=== PATIENT | male | born 1965 | race Caucasian/White ===

== ENCOUNTER 2017-03-07 08:41 | Emergency (ER) | payer OTHER ==
--- NOTE | 2017-03-07 15:34 | SPC ---
FLUOROSCOPICALLY GUIDED LEFT UPPER EXTREMITY PICC LINE INSERTION: 03/07/17 HISTORY: Patient with osteomyelitis. RADIATION DOSIMETRY: 1.6 minutes of fluoroscopy and DAP 6.2 Gy*cm2. Informed consent was obtained from the patient. The left basilic vein was localized using fluoroscop y and some intravenous contrast. The overlying skin was prepped and draped in the usual sterile blas er. A 1% lidocaine solution was to anesthetize the overlying soft tissues. A small dermatotomy was m sony. The left basilic vein was accessed. An 0.018 wire was introduced. A 5 Vincentian PICC line was cut to 48 cm and placed over the wire through a peel away sheath distal tip in the SVC/right atrial junc tion. IMPRESSION: Successful placement of a left upper extremity PICC line. POS: [facility]
== END 2017-03-07 14:54 | disposition home or self-care (01) ==
LOC: ERS 08:41
DX: Z45.2 Encounter for adjustment and management of vascular access device (principal); E11.9 Type 2 diabetes mellitus without complications; I10 Essential (primary) hypertension; I25.2 Old myocardial infarction; E78.5 Hyperlipidemia, unspecified; F17.210 Nicotine dependence, cigarettes, uncomplicated; Z79.82 Long term (current) use of aspirin; Z79.4 Long term (current) use of insulin; Z79.01 Long term (current) use of anticoagulants; Z79.899 Other long term (current) drug therapy
CPT/HCPCS: 36569; 99283; C1751

== ENCOUNTER 2017-11-13 22:29 | Inpatient (IN) | payer OTHER ==
--- NOTE | 2017-11-13 23:02 | RAD ---
PORTABLE CHEST: 11/13/17 HISTORY: Chest pain. Lung kenny are clear. No evidence of infiltrate. Heart and mediastinum unremarkable. IMPRESSION: No acute process. POS: [facility]
[2017-11-13 23:12] LABS: Base Excess-Venous 3.1 mmol/L (0 (+/- 2.5)); Bicarbonate (HCO3v) 27.6 mmol/L (1.0-85.0); Hemoglobin - Calc 15.8 g/dL (12.0-18.0); O2 Tension (PvO2) 57.7 mmHg (35.0-45.0); Potassium 4.6 mmol/L (3.4-4.7); T. Carbon Dioxide 28.9 mmol/L (1.0-85.0); pH (Venous) 7.436 (7.35-7.45); vO2 Saturation-calc 90.4 % (94-98)
--- NOTE | 2017-11-13 23:12 | RAD ---
RIGHT FOOT: 11/13/17 Three views. HISTORY: Foot pain. There are moderate degenerative changes of the first MTP joint. Joint narrowing and hypertrophic spur ring is present at this joint. Mild to moderate degenerative change at the IP joint of the great toe. The other MTP joints appear unremarkable. IP joints are otherwise unremarkable. No acute fracture identified. Mild degenerative changes in the intertarsal joints and small enthesoph yte from the plantar calcaneus. Mild soft tissue swelling seen involving the midfoot of uncertain significance. IMPRESSION: 1. There are degenerative changes involving the first MTP joint and first IP joint as described above. 2. Soft tissue swelling seen dorsally and ventrally at the midfoot. POS: [facility]
[2017-11-13 23:21] LABS: #Eosinphils 0.1 thou/uL (0.0-0.7); #Lymphocytes 0.8 thou/uL (1.20-3.40); #Monocytes 0.7 thou/uL (0.11-0.59); #Neutrophils 10.7 thou/uL (1.40-6.50); %Basophils 0.4 % (0.0-1.0); %Lymphocytes 6.7 % (21.0-51.0); %Monocytes 5.8 % (0.0-10.0); %Neutrophils 86.2 % (42.0-75.0); Hemoglobin 15.2 g/dL (14.0-18.0); Mean Corpuscular Hemoglobin 31.3 pg (27.0-31.0); Mean Platelet Volume 8.7 fL (7.4-10.4); Platelet Count 189 thou/uL (130-400); RBC Distribution Width 13.3 % (11.5-14.5); Red Blood Cell (RBC) Count 4.84 mill/uL (4.70-6.10); White Blood Cell (WBC) Count 12.5 thou/uL (4.8-10.8)
[2017-11-13] MEDS ORDERED: Fentanyl 100 MCG/2 ML VIAL ONE (23:41)
[2017-11-13] MEDS ORDERED: MEROPENEM 1 GM/50 ML 1 GM in Premix Bag 1 BAG IVPB SCH (23:45)
[2017-11-13 23:46] LABS: CKMB 2.5 ng/mL (0-6.6); Troponin I Less than 0.010 ng/mL (< 0.028)
[2017-11-14 00:15] LABS: ALT (SGPT) 21 U/L (8-55); AST (SGOT) 15 U/L (5-34); Albumin 3.5 g/dL (3.5-5.0); Alkaline Phosphatase 81 U/L (40-150); Anion Gap 12 mmol/L (10-20); BUN (Urea Nitrogen) 16 mg/dL (8.4-25.7); Bilirubin, Total 0.7 mg/dL (0.2-1.2); CK (CPK) 391 U/L (30-200); CRP (Inflammatory) 1.33 mg/dL (= or < 0.5); Calc. Creatinine Clearance 0 mL/min (70-130); Calcium 8.7 mg/dL (7.8-10.44); Carbon Dioxide 26 mmol/L (22-29); Chloride 103 mmol/L (98-107); Estimated GFR-MDRD 76; Globulin 2.7 g/dL (2.4-3.5); Glucose 243 mg/dL (70-105); Potassium 3.8 mmol/L (3.5-5.1); Protein, Total 6.2 g/dL (6.0-8.3); Sodium 137 mmol/L (136-145)
--- NOTE | 2017-11-14 01:23 | PDOC.FPRHP ---
- History of Present Illness Chief Complaint: elevated blood sugars History of Present Illness: Fredo Seals is a 52 year old male with a PMH of uncontrolled Type 2 DM, CAD s/p stentX2, HTN, HLD, Hx of DVT/PE s/p IVC filter. He presented to the ED because of a 1 days history of weakness. Pt was scheduled for a Pet scan today due to a lung nodule that is being worked up outpatient. In order for him to get the PET scan done, he was told that his blood sugars had to be below 200. Patient states that he woke up at 3 am this morning and his blood sugar was in the 300s. He took 160 U of tresiba at that time and he also took an unknown amount of humalog at that time. At around 8 am, his blood sugars were still above 200 , so he took more insulin. He was unable to say how much he took at that time. Since this morning he has been feeling weak. The last blood sugar he had was in the 100s prior to his PET scan. He states that for the last few days and weeks his blood sugars have been very uncontrolled, anywhere between 300s-600s. He also has a diabetic foot wound on his left great toe. He is being seen by Podiatry, last visit was about a week and a half ago. Patient just finished a 10 day course of an unknown antibiotic given to him by the Archaeology Professor due to concern of infection. He also had an MRI of the great toe done a few days ago at [facility] in [place] but has not been notified of the results yet. He states that his toe is not painful and he denies any fevers or any other complaints. He recently moved to [place] from [place] in August. He still drives to [place] to attend regular visits with his PCP. ED Course: He was given fentanyl and vancomycin in the ED - Allergies/Adverse Reactions Allergies Allergy/AdvReac Type Severity Reaction Status Date / Time morphine Allergy Verified 11/13/17 23:46 - Home Medications Comments: Unable to obtain reliable medication history at this time. - History PMHx: 1. DM2 2. HTN 3. CAD s/p Stent X2 4. Hx of DVT and PE, s/p IVC filter and currently on Xarelto 5. HLD PSHx: 1. Right great toe amputation 2. IVC filter placement 3. Coronary stent placement X2 4. Three knee surgeries FHx: DM, CAD in family Social: Recently moved to [place] from [place]. Current smoker, 25 pk year history, occasional alcohol use, denies drugs - Review of Systems General: reports: fatigue. denies: fever/chills, weight/appetite/sleep changes , night sweats Eyes: denies: eye pain, vision changes ENT: denies: nasal congestion, rhinorrhea Respiratory: denies: cough, congestion, shortness of breath, exercise intolerance Cardiovascular: denies: chest pain, palpitation, edema, paroxysmal nocturnal dyspnea, orthopnea Gastrointestinal: denies: nausea, vomiting, diarrhea, constipation, abdominal pain, GI bleeding Genitourinary: reports: polyuria. denies: incontinence, dysuria, discharge Skin: denies: rashes, lesions, jaundice Musculoskeletal: denies: pain, tenderness, stiffness, swelling, arthritis/ arthralgias Neurological: reports: weakness. denies: numbness, syncope, seizure Psychological: denies: anxiety, depression - Vital signs BP: 134/83 HR: 95 RR: 20 Tmax: 98.5 Pox: 95% on RA Wt: 151 kg - Physical Exam Constitutional: NAD, awake, alert and oriented, well developed HEENT: normocephalic and atraumatic, PERRLA, EOMI, conjunctiva clear, no scleral icterus, grossly normal vision, TM's clear and intact, grossly normal hearing, normal nasal mucosa, MMM, oropharynx clear Neck: supple, FROM, trachea midline, no LAD Chest: no-tender to palpation, no lesions Heart: RRR, normal S1/S2, no murmurs/rubs/gallops -Heart: 1+ pitting edema, distant heart sounds, decreased pulses in distal extremities Lungs: CTAB, no respiratory distress, good air movement, no rales/rhonchi, no wheezing Abdomen: soft, non-tender, bowel sounds present, no masses/distention Musculoskeletal: normal structure, normal tone, ROM grossly normal Neurological: no focal deficit, CN II-XII intact, normal sensation, DTRs 2+ Skin: no rash/lesions, good turgor, capillary refill <2 seconds Heme/Lymphatic: no unusual bruising or bleeding, no purpura, no petechia Psychiatric: normal mood and affect, good judgment and insight, intact recent and remote memory FMR H&P: Results - Labs Result Diagrams: 11/13/17 23:16 11/13/17 23:46 Lab results: WBC 12.5 thou/uL (4.8-10.8) H 11/13/17 23:16 Hgb 15.2 g/dL (14.0-18.0) 11/13/17 23:16 Hct 44.5 % (42.0-52.0) 11/13/17 23:16 MCV 92.0 fl (80.0-94.0) 11/13/17 23:16 Plt Count 189 thou/uL (130-400) 11/13/17 23:16 Neutrophils % 86.2 % (42.0-75.0) H 11/13/17 23:16 ESR Westergren 31 mm/hr (Less than 20) 11/13/17 23:16 VBG pCO2 41.0 mmHg (41.0-51.0) 11/13/17 23:07 VBG pO2 57.7 mmHg (35.0-45.0) H 11/13/17 23:07 Sodium 137 mmol/L (136-145) 11/13/17 23:46 Potassium 3.8 mmol/L (3.5-5.1) 11/13/17 23:46 Chloride 103 mmol/L (98-107) 11/13/17 23:46 Carbon Dioxide 26 mmol/L (22-29) 11/13/17 23:46 BUN 16 mg/dL (8.4-25.7) 11/13/17 23:46 Creatinine 1.02 mg/dL (0.6-1.3) 11/13/17 23:46 Glucose 243 mg/dL (70-105) H 11/13/17 23:46 Calcium 8.7 mg/dL (7.8-10.44) 11/13/17 23:46 Total Bilirubin 0.7 mg/dL (0.2-1.2) 11/13/17 23:46 AST 15 U/L (5-34) 11/13/17 23:46 ALT 21 U/L (8-55) 11/13/17 23:46 Alkaline Phosphatase 81 U/L (40-150) 11/13/17 23:46 Creatine Kinase 391 U/L (30-200) H 11/13/17 23:46 CK-MB (CK-2) 2.5 ng/mL (0-6.6) 11/13/17 23:16 C-Reactive Protein 1.33 mg/dL (= or < 0.5) H 11/13/17 23:46 B-Natriuretic Peptide 70.7 pg/mL (0-100) 11/13/17 23:16 Serum Total Protein 6.2 g/dL (6.0-8.3) 11/13/17 23:46 Albumin 3.5 g/dL (3.5-5.0) 11/13/17 23:46 Lipase 104 U/L (8-78) H 11/13/17 23:46 - EKG Interpretation EKG: NSR FMR H&P: A/P - Problem List (1) Diabetic infection of right foot Current Visit: Yes Status: Acute Code(s): E11.628 - TYPE 2 DIABETES MELLITUS WITH OTHER SKIN COMPLICATIONS; L08.9 - LOCAL INFECTION OF THE SKIN AND SUBCUTANEOUS TISSUE, UNSP (2) Uncontrolled type 2 diabetes mellitus Current Visit: Yes Status: Chronic Code(s): E11.65 - TYPE 2 DIABETES MELLITUS WITH HYPERGLYCEMIA (3) CAD (coronary artery disease) Current Visit: Yes Status: Chronic Code(s): I25.10 - ATHSCL HEART DISEASE OF [place] CORONARY ARTERY W/O ANG PCTRS (4) HTN (hypertension) Current Visit: Yes Status: Chronic Code(s): I10 - ESSENTIAL (PRIMARY) HYPERTENSION (5) HLD (hyperlipidemia) Current Visit: Yes Status: Chronic Code(s): E78.5 - HYPERLIPIDEMIA, UNSPECIFIED (6) History of venous thromboembolism Current Visit: Yes Status: Chronic Code(s): Z86.718 - PERSONAL HISTORY OF OTHER VENOUS THROMBOSIS AND EMBOLISM - Plan (1) Diabetic Foot Ulcer Infection: - Admit to Medical - Failed 10 day course of outpatient therapy - ESR of 31, radiograph of toe showed no evidence for osteomyelitis - Started on IV vancomycin in the ED - Wound culture obtained in the ED - Will changed Zosyn for pseudomonal coverage - Requesting records from MRI done at [facility] this week - Decreased peripheral pulses, ordered doppler US of right LE 2) Uncontrolled Insulin-dependent Diabetes Mellitus - Patient took higher than normal doses of insulin prior to PET scan this morning - BSs have been ranging from 300s-600s+ at home over last week - BSs ranging from 100s to 500s in ED - Accuchecks q2h until stable - Start home insulin regimen and aggressive SSI 3) CAD s/p stentX2 - Continue home regimen 4) HTN - Home meds 5) Hx of VTE s/p IVC filter and on xarelto - Continue home regimen 6) HLD - Home statin CODE STATUS: FULL CODE Disposition/LOS: Admit to medical, anticipate discharge home after admission >48 hr FMR H&P: Upper Level - Pertinent history 52yo CM with pmhx uncontrolled IDDM2, CAD s/p stentX2, HTN, HLD, Hx of DVT/PE s/ p IVC filter & xarleto presents to ED with 1 day of weakness and fatigue. States he has been trying to get his blood sugar down in preparation for a PET scan due to a lung nodule noted by PCP in [place]. He states he awoke from nap , took his 160 units of Tresiba (usual dose) + some unknown amount of novolog. Rechecked his BS and states it was in 300s, so he took an additional unknown dose of novolog and began to feel poorly. States he is not always good about his blood sugars in regards to diet or insulin compliance, but he has been working really hard to make his sugars controlled to be a PET scan candidate. Also, c/o left great toe ulcer currently being followed outpatient by podiatry. He states he has had it debrided in the past and was recently placed on 1 week of an unknown antibiotic and had an MRI at [facility] in [place] due to concern for osteomyelitis. He does not yet know these results. Denies any fevers or chills, abd pain, n/v. 1ppd smoker - Pertinent findings Significant Laboratory Tests: 11/13/17 11/13/17 11/13/17 22:37 23:16 23:16 WBC 12.5 H Hgb 15.2 Hct 44.5 Plt Count 189 Neutrophils % 86.2 H ESR Westergren 31 Sodium Potassium Chloride Carbon Dioxide Anion Gap Creatinine Estimated GFR (MDRD) Glucose POC Glucose 542 H POC Glucose (other) C-Reactive Protein B-Hydroxybutyrate 11/13/17 11/13/17 11/13/17 23:46 23:46 23:46 WBC Hgb Hct Plt Count Neutrophils % ESR Westergren Sodium 137 Potassium 3.8 Chloride 103 Carbon Dioxide 26 Anion Gap 12 Creatinine 1.02 Estimated GFR (MDRD) 76 Glucose 243 H POC Glucose POC Glucose (other) C-Reactive Protein 1.33 H B-Hydroxybutyrate 0.10 11/14/17 01:01 WBC Hgb Hct Plt Count Neutrophils % ESR Westergren Sodium Potassium Chloride Carbon Dioxide Anion Gap Creatinine Estimated GFR (MDRD) Glucose POC Glucose POC Glucose (other) 159 H C-Reactive Protein B-Hydroxybutyrate PE: Gen- morbidly obese, NAD, well appearing male CV- rrr, no mrg Lungs- CTAB Abd- protuberant due to obesity, soft, nontender LE-bilateral trace to 1+ pitting edema, stasis dermatitis. LLE distal pulses 1+/ 4, RLE distal pulses unable to palpate. Rt great toe medial aspect ulceration- dry, nontender. attempted wound cx. Psyc- appropriate RLE xray- degenerative changes, no clear osteomyelitis - Plan Date/Time: 11/14/17 0123 52yo CM with pmhx uncontrolled IDDM2, CAD s/p stentX2, HTN, HLD, Hx of DVT/PE s/ p IVC filter & xarleto presents to ED with 1 day of weakness and fatigue. S 1) Infected diabetic foot ulcer- s/p vanc & merrem in ED. change to zosyn for empiric coverage + pseudomonal coverage. Pending wcx, however discharge was more caseous than purulent, therefore unlikely to yield helpful results. s/p BCx. ESR = 31, pending records from [facility] regarding recent MRI. check RLE arterial US for flow as unable to palpate pulse. consider surgical vs. CV referral if indicated. 2) Labile hyperglycemia- recent effort for strict control prior to PET scan; however now BS have been labile from 500s to 100s during ED stay and pt unsure quantity of insulin injected throughout the day. Will monitor q2hr accuchecks & ACHS accuchecks until stable. Continue home insulin regimen + aggressive SSI. 3) IDDM2- see above 4) CAD s/p stent- continue med mgmt 5) HTN- continue home meds 6) h/o DVT + PE- IVC filter + xarelto 7) HLD- home statin 8) VTE ppx- IVC filter + home xarelto I, [Margie Thomas DO (PGY-3)], have evaluated this patient and agree with findings/plan as outlined by r d internship resident. Pertinent changes/additions are listed here.
[2017-11-14 01:39] LABS: Bilirubin Negative (Negative); Blood, Urine Negative (Negative); Clarity CLEAR (Clear); Glucose, Urine (Dipstick) >=1000 mg/dL (Negative); Leukocyte Negative (Negative); Nitrite Negative (Negative); Protein, Urine (Dipstick) Negative (Neg-Trace); Specific Gravity, Urine 1.036 (1.002-1.036); Urobilinogen 0.2 mg/dL (0.2-1.0)
[2017-11-14 02:04] LABS: Hemoglobin A1c 13.2 % (4.0-6.0)
[2017-11-14] MEDS ORDERED: Dextrose 5% in Water 1,000 ML IV PRN ×2 (03:03→07:35)
[2017-11-14] MEDS ORDERED: Acetaminophen 325 MG TAB PO PRN (03:03)
[2017-11-14] MEDS ORDERED: Dextrose 50% Abboject 50 ML SYRINGE SLOW IVP PRN ×2 (03:03→07:35)
[2017-11-14] MEDS ORDERED: HumaLOG 300 UNITS/3 ML VIAL SC PRN ×2 (03:03)
[2017-11-14 03:54] VITALS: BMI 43.9
[2017-11-14] MEDS: Piperacillin/Tazobactam 4.5 GM in Sodium Chloride 0.9% 100 ML IVPB SCH ×3 (05:43→22:36)
[2017-11-14 05:48] LABS: #Eosinphils 0.2 thou/uL (0.0-0.7); #Lymphocytes 1.3 thou/uL (1.20-3.40); #Monocytes 0.6 thou/uL (0.11-0.59); #Neutrophils 6.2 thou/uL (1.40-6.50); %Basophils 0.3 % (0.0-1.0); %Eosinophils 2.3 % (0.0-10.0); %Lymphocytes 15.5 % (21.0-51.0); %Monocytes 7.5 % (0.0-10.0); %Neutrophils 74.4 % (42.0-75.0); Hemoglobin 13.5 g/dL (14.0-18.0); Mean Corpuscular HGB CONC 33.2 g/dL (32.0-36.0); Mean Corpuscular Hemoglobin 30.6 pg (27.0-31.0); Mean Corpuscular Volume 91.9 fl (80.0-94.0); Mean Platelet Volume 8.2 fL (7.4-10.4); Platelet Count 145 thou/uL (130-400); RBC Distribution Width 13.3 % (11.5-14.5); Red Blood Cell (RBC) Count 4.43 mill/uL (4.70-6.10); White Blood Cell (WBC) Count 8.4 thou/uL (4.8-10.8)
[2017-11-14 05:49] LABS: Anion Gap 12 mmol/L (10-20); BUN (Urea Nitrogen) 15 mg/dL (8.4-25.7); Calc. Creatinine Clearance 215 mL/min (70-130); Calcium 8.4 mg/dL (7.8-10.44); Carbon Dioxide 26 mmol/L (22-29); Chloride 105 mmol/L (98-107); Estimated GFR-MDRD Greater than 90; Glucose 176 mg/dL (70-105); Potassium 3.7 mmol/L (3.5-5.1); Sodium 139 mmol/L (136-145)
--- NOTE | 2017-11-14 05:51 | PDOC.EVN ---
Event Note - Event Note Event Note: (1) Diabetic Foot Ulcer Infection: - Admit to Medical - Failed 10 day course of outpatient therapy - ESR of 31, radiograph of toe showed no evidence for osteomyelitis - Started on IV vancomycin in the ED - Wound culture obtained in the ED - Will changed Zosyn for pseudomonal coverage - Requesting records from MRI done at [facility] this week - Decreased peripheral pulses, ordered doppler US of right LE 2) Uncontrolled Insulin-dependent Diabetes Mellitus - Patient took higher than normal doses of insulin prior to PET scan this morning - BSs have been ranging from 300s-600s+ at home over last week - BSs ranging from 100s to 500s in ED - Accuchecks q2h until stable - Start home insulin regimen and aggressive SSI 3) CAD s/p stentX2 - Continue home regimen 4) HTN - Home meds 5) Hx of VTE s/p IVC filter and on xarelto - Continue home regimen 6) HLD - Home statin CODE STATUS: FULL CODE Disposition/LOS: Admit to medical, anticipate discharge home after admission >48 hr
[2017-11-14] MEDS: HYDROcodone/Acetaminophen 5/325 mg Tablet PO PRN ×3 (07:12→22:36)
[2017-11-14] MEDS ORDERED: PHARMACY TO DOSE VANCOMYCIN IVPB PRN (08:21)
--- NOTE | 2017-11-14 08:22 | ULT ---
RIGHT LOWER EXTREMITY ARTERIAL VASCULAR DUPLEX INCLUDING COLOR AND SPECTRAL DOPPLER IMAGING: Date: 11/14/17 HISTORY: 52-year-old male with infected great toe. Pulses could not be palpated. Evaluate flow to foot. Histor y of peripheral vascular disease. FINDINGS: There is triphasic flow noted involving the right common femoral artery, profunda femoral artery, sup erficial femoral artery, and trifurcation and anterior tibial artery regions. Distally, there was mon ophasic flow at the level of the posterior tibial artery and monophasic flow with some decreased [place] at the level of the dorsalis pedis artery. IMPRESSION: Triphasic flow down to the level of the popliteal artery and anterior tibial artery with monophasic f low of the posterior tibial artery and dorsalis pedis artery with some decreased velocity in the dors ana maria pedis. POS: [facility]
[2017-11-14] MEDS ORDERED: Enoxaparin Sodium 40 MG/0.4 ML SYRINGE SC SCH (09:00)
[2017-11-14] MEDS ORDERED: Clindamycin 150 MG CAP PO SCH (09:00)
[2017-11-14] MEDS ORDERED: Insulin Glargine 120 UNITS in Pre-Filled Syringe 1 EACH SC SCH ×2 (09:00→21:00)
[2017-11-14] MEDS ORDERED: traMADol HCl 50 MG TAB PO PRN (09:56)
[2017-11-14] MEDS: HumaLOG 300 UNITS/3 ML VIAL SC PRN ×2 (12:21→18:36)
[2017-11-14] MEDS: Gabapentin 300 MG CAP PO SCH ×2 (14:44→21:41)
[2017-11-14] MEDS: Rivaroxaban 10 MG TAB PO SCH (18:32)
[2017-11-15] MEDS: HYDROcodone/Acetaminophen 5/325 mg Tablet PO PRN ×2 (05:03→12:53)
[2017-11-15] MEDS ORDERED: Piperacillin/Tazobactam 4.5 GM VIAL ONE (05:04)
[2017-11-15] MEDS: Piperacillin/Tazobactam 4.5 GM in Sodium Chloride 0.9% 100 ML IVPB SCH ×2 (05:05→13:11)
[2017-11-15 05:41] LABS: #Eosinphils 0.3 thou/uL (0.0-0.7); #Lymphocytes 1.4 thou/uL (1.20-3.40); #Monocytes 0.6 thou/uL (0.11-0.59); #Neutrophils 3.5 thou/uL (1.40-6.50); %Basophils 0.2 % (0.0-1.0); %Eosinophils 4.4 % (0.0-10.0); %Lymphocytes 24.7 % (21.0-51.0); %Monocytes 10.3 % (0.0-10.0); %Neutrophils 60.5 % (42.0-75.0); Anion Gap 9 mmol/L (10-20); BUN (Urea Nitrogen) 16 mg/dL (8.4-25.7); Calc. Creatinine Clearance 184 mL/min (70-130); Calcium 8.5 mg/dL (7.8-10.44); Carbon Dioxide 28 mmol/L (22-29); Chloride 106 mmol/L (98-107); Estimated GFR-MDRD 79; Glucose 262 mg/dL (70-105); Hemoglobin 13.3 g/dL (14.0-18.0); Mean Corpuscular HGB CONC 32.9 g/dL (32.0-36.0); Mean Corpuscular Hemoglobin 30.7 pg (27.0-31.0); Mean Corpuscular Volume 93.3 fl (80.0-94.0); Mean Platelet Volume 8.5 fL (7.4-10.4); Platelet Count 146 thou/uL (130-400); Potassium 4.2 mmol/L (3.5-5.1); RBC Distribution Width 13.4 % (11.5-14.5); Red Blood Cell (RBC) Count 4.34 mill/uL (4.70-6.10); Sodium 139 mmol/L (136-145); White Blood Cell (WBC) Count 5.8 thou/uL (4.8-10.8)
[2017-11-15] MEDS: HumaLOG 300 UNITS/3 ML VIAL SC PRN ×3 (07:06→17:19)
[2017-11-15] MEDS ORDERED: INSULIN GLARGINE SC SCH (07:39)
[2017-11-15] MEDS ORDERED: Dextrose 50% Abboject 50 ML SYRINGE SLOW IVP PRN (07:39)
[2017-11-15] MEDS ORDERED: Dextrose 5% in Water 1,000 ML IV PRN (07:39)
[2017-11-15] MEDS ORDERED: PRE FILLED SC SCH (07:39)
[2017-11-15 07:41] VITALS: BP 123/76; TEMP 98.3
--- NOTE | 2017-11-15 07:42 | PDOC.FM ---
- Subjective Subjective: This morning patient states he is feeling well. He was able to walk outside yesterday for a smoke break without difficulty. The patient denies fevers, chills, sweat, N/V/D. He is having 2/10 ache in the R foot but otherwise no pain. He states his swelling gets worse with walking. - Objective Vital Signs & Weight: Vital Signs (12 hours) Temp Pulse Resp BP Pulse Ox 11/15/17 03:45 98.6 F 68 18 135/78 95 11/14/17 23:27 97.9 F 72 18 116/71 94 L 11/14/17 19:46 97.8 F 75 18 95 11/14/17 19:42 97.8 F 75 18 131/68 95 Weight Admit Weight 151 kg Weight 151 kg I&O: 11/14/17 11/15/17 11/16/17 06:59 06:59 06:59 Intake Total 1670 Balance 1670 Result Diagrams: 11/15/17 04:28 11/15/17 04:28 <Dereck Schultz - Last Filed: 11/15/17 07:40> - Objective Vital Signs & Weight: Vital Signs (12 hours) Temp Pulse Resp BP Pulse Ox 11/15/17 07:39 98.3 F 62 18 123/76 94 L 11/15/17 03:45 98.6 F 68 18 135/78 95 11/14/17 23:27 97.9 F 72 18 116/71 94 L Weight Admit Weight 332 lb 14.368 oz Weight 332 lb 14.368 oz I&O: 11/14/17 11/15/17 11/16/17 06:59 06:59 06:59 Intake Total 1670 Balance 1670 Result Diagrams: 11/15/17 04:28 11/15/17 04:28 <Daniel Roberts - Last Filed: 11/15/17 08:35> Phys Exam - Physical Examination Constitutional: NAD HEENT: PERRLA, moist MMs Neck: no nodes, full ROM Respiratory: no wheezing, clear to auscultation bilateral Cardiovascular: RRR, no significant murmur Gastrointestinal: soft, non-tender, positive bowel sounds trace edema on the RLE, tenderness to palpation, mild erythema to ankle Neurological: non-focal, moves all 4 limbs Psychiatric: normal affect, A&O x 3 Skin: no rash, cap refill <2 seconds Deviation from normal: diminshed pulses on R side <Dereck Schultz - Last Filed: 11/15/17 07:40> Dx/Plan (1) Diabetic infection of right foot Code(s): E11.628 - TYPE 2 DIABETES MELLITUS WITH OTHER SKIN COMPLICATIONS; L08.9 - LOCAL INFECTION OF THE SKIN AND SUBCUTANEOUS TISSUE, UNSP Status: Acute (2) CAD (coronary artery disease) Code(s): I25.10 - ATHSCL HEART DISEASE OF [place] CORONARY ARTERY W/O ANG PCTRS Status: Chronic (3) HLD (hyperlipidemia) Code(s): E78.5 - HYPERLIPIDEMIA, UNSPECIFIED Status: Chronic (4) HTN (hypertension) Code(s): I10 - ESSENTIAL (PRIMARY) HYPERTENSION Status: Chronic (5) History of venous thromboembolism Code(s): Z86.718 - PERSONAL HISTORY OF OTHER VENOUS THROMBOSIS AND EMBOLISM Status: Chronic (6) Uncontrolled type 2 diabetes mellitus Code(s): E11.65 - TYPE 2 DIABETES MELLITUS WITH HYPERGLYCEMIA Status: Chronic - Plan Plan: # Diabetic Foot Ulcer Infection: - Admit to Medical - Failed 10 day course of outpatient therapy - ESR of 31, radiograph of toe showed no evidence for osteomyelitis - IV Jamilah gonzalez - Requesting records from MRI done at [facility] 11/12 # Peripheral artery disease, hx of DVT - arterial doppler RLE showed decreased velocity - ordered RLE doppler 2/2 unilateral swelling, redness, history of DVT # Uncontrolled Insulin-dependent Diabetes Mellitus - Patient took higher than normal doses of insulin prior to PET scan this morning - BG have been ranging from 300s-600s+ at home over last week - A1c 13.2 - Accuchecks qACHS - 130 lantus BID, aggressive sliding scale - home regimen 160 tresiba BID, "60 of novalog if my sugar is low side, 120 if it is high side" # CAD s/p stentX2 - Continue home regimen # HTN - Home meds # Hx of VTE s/p IVC filter and on xarelto - Continue home regimen # HLD - Home statin CODE STATUS: FULL CODE Disposition/LOS: failed outpatient abx for diabetic foot ulcer, will await cultures/sensitivities, then home on oral abx, follow closely with podiatry who ordered the MRI <Dereck Schultz - Last Filed: 11/15/17 07:40> Attending Addendum - Attending Addendum Date/Time: 11/15/17 0834 I personally evaluated the patient and discussed the management with Dr. schultz. I agree with the History, Examination, Assessment and Plan documented above with any addition or exceptions noted below. Follow cuiltures, continue iv antibiotics for now. <Daniel Roberts - Last Filed: 11/15/17 08:35>
[2017-11-15 07:50] LABS: Vancomycin, Trough 26.2 ug/mL
[2017-11-15] MEDS ORDERED: Potassium Chloride 10 MEQ TAB PO SCH (08:00)
[2017-11-15] MEDS ORDERED: Lisinopril 5 MG TAB PO SCH (09:00)
[2017-11-15] MEDS ORDERED: Escitalopram Oxalate 10 mg Tablet PO SCH (09:00)
[2017-11-15] MEDS ORDERED: Furosemide 20 MG TAB PO SCH (09:00)
[2017-11-15] MEDS ORDERED: Metoprolol Tartrate 25 MG TAB PO SCH (09:00)
[2017-11-15] MEDS ORDERED: EMPAGLIFLOZIN 25 MG PO SCH (09:00)
[2017-11-15] MEDS: Gabapentin 300 MG CAP PO SCH ×2 (10:25→17:02)
--- NOTE | 2017-11-15 11:24 | ULT ---
RIGHT LOWER EXTREMITY VENOUS DUPLEX ULTRASOUND INCLUDING COLOR AND SPECTRAL DOPPLER IMAGING: Date: 11/15/17 HISTORY: 52-year-old male with history of right-sided swelling and redness. Patient has known history of prior deep venous thrombosis and is on blood thinners and has an IVC filter. TECHNIQUE: Exam performed from groin to ankle including greater saphenous, common femoral, superficial femoral, profunda femoral, popliteal, trifurcation, and posterior tibial veins. FINDINGS: The common femoral vein is noncompressible with flow, but some intraluminal thrombus. Superficial fem oral vein appears patent. There is partial compressibility with flow at the level of the popliteal ve in and partial compressibility with flow at the level of the trifurcation. In the mid posterior tibia l vein, there is noncompressibility with intraluminal thrombus. IMPRESSION: Evidence for intraluminal thrombus involving portions of the common femoral vein, popliteal vein, tri furcation, and posterior tibial veins. Age of this thrombus cannot be determined from this study, but the patient does have a history of prior deep venous thrombosis and is on blood thinners and has an IVC filter in place. This thrombus could be acute and/or chronic. POS: [facility]
[2017-11-15] MEDS: Rivaroxaban 10 MG TAB PO SCH (17:02)
--- NOTE | 2017-11-16 14:35 | DIS-2 ---
DATE OF ADMISSION: 11/14/2017 DATE OF DISCHARGE: 11/15/2017 RESIDENT: Dereck Potter M.D. ADMITTING ATTENDING: Daniel Roberts M.D. DISCHARGE ATTENDING: Daniel Roberts M.D. CONSULTATIONS: None. PROCEDURES: Lower extremity ultrasound shows monophasic arterial blood flow with decreased velocity at the dorsalis pedis of the right foot, vascular ultrasound shows evidence for thrombus involving po rtions of common femoral, popliteal, and posterior tibial veins. Age cannot be determined, thought t o be chronic. PRIMARY DIAGNOSIS: Diabetic foot ulcer. SECONDARY DIAGNOSES: Peripheral artery disease, diabetes mellitus, history of coronary artery diseas e, hypertension, history of deep venous thrombosis, hyperlipidemia. DISCHARGE MEDICATIONS: Bactrim b.i.d. for 7 days, fenofibrate, NovoLog, Lasix 20 mg, Tresiba 160 uni ts b.i.d., potassium, metoprolol, Xarelto, tramadol, lisinopril, gabapentin, citalopram, Jardiance, a spirin. DISCONTINUED MEDICATIONS: None. HISTORY OF PRESENT ILLNESS AND HOSPITAL COURSE: A 52-year-old male who presented to the ED complaini ng of 1 day history of weakness. Has a history of uncontrolled type 2 diabetes mellitus, CAD with st ents x2, hypertension, deep venous thrombosis, status post IVC filter. The patient had an MRI on Thu for evaluation of osteomylitis per Podiatry in [place]. Also had a PET scan on Thursday for eval uation of lung nodule in [place] as well. He was trying to get his blood sugars below 200s, so he co uld qualify for the PET scan, so he took extra insulin and does not remember how much extra he took. Upon presentation to the ED, his blood sugars were running in the 100s to low 200s. States that he was on some antibiotic recently, but he does not remember which one it was. The patient's wound culture showed Streptococcus agalactiae, which was pansensitive. This is likely a contaminant, but we will follow up at the end of the culture and call the patient if the antibiotic needs to be changed. The blood cultures were negative at time of discharge, we will follow the resu lt. The patient was afebrile throughout the stay. The patient did obtain good blood sugar control d uring the hospitalization, educated the patient extensively. Right lower extremity ultrasound showed deep venous thrombosis. The patient does have an IVC filter and continues to take Xarelto, discusse d that should this patient become short of breath he is to return to the ED for further evaluation. The patient is instructed to wear compression socks at home and keep the feet elevated when he is at rest. DISPOSITION: Stable. DISCHARGE INSTRUCTIONS: 1. Location: Home. 2. Diet: Diabetic. 3. Activity: As tolerated. 4. Followup: PCP in 1-2 days, Podiatry in 1-2 days. The patient's A1c was 13.2. Please continue t o educate patient on importance of controlling his blood sugars. The patient's swelling in the right leg should be continued to be monitored.
== END 2017-11-15 18:32 | disposition home or self-care (01) | DRG 639 ==
LOC: ERS 22:29 → T4-A 11-14 02:29
PROVIDERS: ADMIT Family Medicine; ATTEND Family Medicine
DX: E11.621 Type 2 diabetes mellitus with foot ulcer (principal); L97.501 Non-pressure chronic ulcer of other part of unspecified foot limited to breakdown of skin; Z79.4 Long term (current) use of insulin; B95.4 Other streptococcus as the cause of diseases classified elsewhere; E11.51 Type 2 diabetes mellitus with diabetic peripheral angiopathy without gangrene; I25.10 Atherosclerotic heart disease of native coronary artery without angina pectoris; I10 Essential (primary) hypertension; E78.5 Hyperlipidemia, unspecified; Z86.718 Personal history of other venous thrombosis and embolism; Z79.01 Long term (current) use of anticoagulants; Z95.5 Presence of coronary angioplasty implant and graft; Z89.411 Acquired absence of right great toe; F17.210 Nicotine dependence, cigarettes, uncomplicated
CPT/HCPCS: 36415; 36416; 71045; 80048; 80053; 80202; 81003; 82010; 82330; 82553; 82803; 82947; 83036; 83690; 83880; 83930; 84484; 85025; 85652; 86140; 87040; 87070; 87077; 87186; 87205; 93005; 93923; 96361; 96365; 96366; 96367; 96375; J2185; J2543; J3010; J3370; J7050